=== PATIENT | female | born 1970 | race Two or more races ===

== ENCOUNTER 2025-02-16 18:12 | Emergency (ER) | payer OTHER ==
[~2025-02-16] VITALS: Ht 157.5 cm; Wt 99.8 kg
[2025-02-16] MEDS ORDERED: SYNJARDY 12.5-1 EACH PO (18:23)
[2025-02-16] MEDS ORDERED: COZAAR25 MG PO (18:23)
[2025-02-16] MEDS ORDERED: ADULT LOW DOSE81 M1 PO (18:24)
[2025-02-16] MEDS ORDERED: KETOROLAC TROMETHAMINE 30 MG VIAL IV STA (22:05)
[2025-02-16] MEDS ORDERED: KETOROLAC TROMETHAMINE 30 MG VIAL ONE (22:07)
[2025-02-16 22:28] LABS: BASO % 0.9 % (0.1-1.2); EOS # 0.17 (0.04-0.54); EOS % 1.8 % (0.7-7.0); HEMOGLOBIN 12.5 g/dL (11.2-15.7); LYMPH % 19.2 % (19.3-53.1); MEAN CORPUSCULAR HEMOGLOBIN 27.1 pg (25.6-32.2); MONO # 0.89 (0.24-0.82); MONO % 9.5 % (4.7-12.5); NEUT # 6.41 (1.56-6.13); NEUT % 68.2 % (34.0-71.1); PLATELET COUNT 334 K/uL (163-369); RED BLOOD COUNT 4.61 M/uL (3.93-5.22); RED CELL DISTRIBUTION WIDTH 13.7 % (11.6-14.4)
[2025-02-16 22:58] LABS: ALBUMIN 3.6 gm/dL (3.4-5.0); BILIRUBIN TOTAL 0.34 mg/dL (0.3-1.2); CALCIUM 9.1 mg/dL (8.5-10.1); CREATININE SERUM 0.86 mg/dL (0.55-1.02); GFR 68.51; GLOBULINA 4.7 G/DL (2.4-3.5); POTASSIUM 4.2 mEq/L (3.5-5.1); TOTAL PROTEIN 8.3 gm/dL (6.4-8.2)
[2025-02-16 23:39] LABS: URINE APPEARANCE Clear; URINE BILIRRUBIN Negative (NEGATIVE); URINE BLOOD Negative; URINE COLOR Dark Yellow; URINE KETONE Trace (NEGATIVE); URINE LEUKOCYTE Trace; URINE NITRATE Positive; URINE PROTEIN Negative (NEGATIVE)
[2025-02-16 23:43] LABS: URINE EPITHELIAL CELLS 6.6 uL (0.0-38.8); URINE RBC 9.7 uL (0.0-20.8); URINE WBC 77.5 uL (0.0-23.2)
[2025-02-16 23:51] LABS: TYPE CELLS SQUAMOUS; URINE BACTERIA > 9821.5 uL (0.0-1933); URINE GLUCOSE >=1000 MG/DL (NEGATIVE)
== END 2025-02-17 01:25 | disposition home or self-care (01) ==
LOC: ER 20:20
PROVIDERS: Emergency Medicine
DX: A60.09 Herpesviral infection of other urogenital tract (principal); E11.9 Type 2 diabetes mellitus without complications; Z79.84 Long term (current) use of oral hypoglycemic drugs; I10 Essential (primary) hypertension; Z88.2 Allergy status to sulfonamides